=== PATIENT | male | born 1980 | race Two or more races ===

== ENCOUNTER 2018-08-06 17:28 | Emergency (ER) | payer MEDICAID ==
[~2018-08-06] VITALS: Ht 167.6 cm; Wt 81.6 kg
[2018-08-06 17:28] VITALS: BP 156/88
[2018-08-06] MEDS ORDERED: IBUPROFEN 400 MG TABLET ONE (18:53)
[2018-08-06] MEDS ORDERED: TDAP [DIPH/PERTUSSIS/TET] 0.5 ML VIAL IM ONE ×2 (18:53→19:00)
[2018-08-06] MEDS ORDERED: IBUPROFEN 400 MG TABLET PO ONE (19:00)
--- NOTE | 2018-08-06 19:32 | NUR ---
Patient discharged to home in stable condition. Written and verbal after care instructions given. Patient verbalizes understanding of instruction.
== END 2018-08-06 19:33 | disposition home or self-care (01) ==
LOC: ER 17:30
DX: S91.331A Puncture wound without foreign body, right foot, initial encounter (principal); W22.8XXA Striking against or struck by other objects, initial encounter; Y93.89 Activity, other specified; Y92.89 Other specified places as the place of occurrence of the external cause; Y99.8 Other external cause status
CPT/HCPCS: 90715

== ENCOUNTER 2023-11-13 00:22 | Emergency (ER) | payer MEDICAID ==
[~2023-11-13] VITALS: Ht 167.6 cm; Wt 79.4 kg
[2023-11-13] MEDS ORDERED: IBUPROFEN 600 MG TABLET ONE (02:42)
[2023-11-13] MEDS: IBUPROFEN 400 MG TABLET PO ONE (02:48)
[2023-11-13 02:49] VITALS: BP 123/70; O2SAT 97
== END 2023-11-13 02:50 | disposition home or self-care (01) ==
LOC: ER 00:25
DX: S43.402A Unspecified sprain of left shoulder joint, initial encounter (principal); Z91.018 Allergy to other foods; W18.39XA Other fall on same level, initial encounter; Y93.89 Activity, other specified; Y92.89 Other specified places as the place of occurrence of the external cause; Y99.8 Other external cause status
CPT/HCPCS: 73030-TC